=== PATIENT | male | born 1960 | race Caucasian/White ===

== ENCOUNTER 2017-12-18 14:46 | Inpatient (IN) | payer MEDICAID ==
[~2017-12-18] VITALS: Ht 170.2 cm; Wt 77.4 kg
[2017-12-18 15:04] VITALS: Ht 170.2 cm; Wt 77.4 kg
[2017-12-18 16:36] LABS: BASOPHIL % 0.4 % (0-2); PLATELET COUNT 288 x10^3mcL (130-400); RED CELL DISTRIBUTION WIDTH 11.9 % (11.5-14.5)
[2017-12-18 16:57] LABS: FREE T4 0.99 ng/dL (0.76-1.46); FREE THYROXINE INDEX 2.1 ug/dL (1.4-4.5); T4(THYROXINE) 6.5 ug/dL (4.7-13.3)
[2017-12-18 17:03] LABS: CARBON DIOXIDE 26.9 mmol/L (21-32); CHLORIDE SERUM 103 mmol/L (98-107); CREATININE SERUM 0.8 mg/dL (0.7-1.3); GFR1 > 60 mL/min; GLUCOSE SERUM 162 mg/dL (74-106); POTASSIUM SERUM 4.3 mmol/L (3.5-5.1); SODIUM SERUM 138 mmol/L (136-145)
[2017-12-18 17:12] LABS: ALBUMIN 3.8 g/dL (3.4-5.0); ALKALINE PHOSPHATASE 80 U/L (46-116); ALT/SGPT 25 U/L (16-63); AST/SGOT 17 U/L (15-37); BILIRUBIN TOTAL 1.1 mg/dL (0.20-1.00); C REACTIVE PROTEIN 0.7 mg/dL (<=0.9); T3 TOTAL 0.92 ng/mL; TOTAL PROTEIN, SERUM 7.8 g/dL (6.4-8.2)
[2017-12-18 17:24] LABS: CK-MB 4.3 ng/mL (0-3.6)
[2017-12-18 17:26] LABS: ERYTHROCYTE SED RATE 42 mm/hr (0-20)
[2017-12-18 18:39] VITALS: BP 173/74
[2017-12-18 19:23] LABS: CHOLESTEROL/HDL RATIO 3.7; MAGNESIUM 1.8 mg/dL (1.8-2.4); PHOSPHOROUS 4.4 mg/dL (2.5-4.9)
[2017-12-18 20:33] VITALS: BP 135/78
[2017-12-18] MEDS ORDERED: ADULT LOW DOSE81 MG PO (21:12)
[2017-12-18] MEDS ORDERED: PLA75 PO (21:13)
[2017-12-18] MEDS ORDERED: LISINOPRIL40 MG PO (21:14)
[2017-12-18] MEDS ORDERED: LIPI10 PO (21:15)
[2017-12-18] MEDS ORDERED: METFORMIN HCL850 MG PO (21:16)
[2017-12-18] MEDS ORDERED: LANTUS SOLOS100 U/M1 SQ (21:17)
[2017-12-18] MEDS ORDERED: HUMALOG100 U/ML SC (21:18)
[2017-12-19 06:14] VITALS: BP 138/87
[2017-12-19 06:24] LABS: CALCIUM 8.3 mg/dL (8.5-10.1); CARBON DIOXIDE 26.2 mmol/L (21-32); CHLORIDE SERUM 102 mmol/L (98-107); CREATININE SERUM 0.8 mg/dL (0.7-1.3); GFR1 > 60 mL/min; GLUCOSE SERUM 160 mg/dL (74-106); MAGNESIUM 1.5 mg/dL (1.8-2.4); PHOSPHOROUS 3.6 mg/dL (2.5-4.9); POTASSIUM SERUM 4.5 mmol/L (3.5-5.1); SODIUM SERUM 135 mmol/L (136-145)
[2017-12-19 06:44] LABS: BASOPHIL % 0.4 % (0-2); PLATELET COUNT 254 x10^3mcL (130-400); RED CELL DISTRIBUTION WIDTH 11.9 % (11.5-14.5)
[2017-12-19 08:50] VITALS: BP 116/70
[2017-12-19] MEDS ORDERED: CLINDAMYCIN HC300 MG PO (10:17)
[2017-12-19 11:21] VITALS: BP 116/70
== END 2017-12-19 12:15 | disposition home or self-care (01) | DRG 115 ==
LOC: ED 14:46 → MU 17:46
PROVIDERS: Family Medicine; Specialist
PROC: 09900ZZ Drainage of Right External Ear, Open Approach (ICD-10-PCS; principal; 2017-12-18)
DX: H60.01 Abscess of right external ear (principal); N17.0 Acute kidney failure with tubular necrosis; E11.9 Type 2 diabetes mellitus without complications; E78.5 Hyperlipidemia, unspecified; I25.10 Atherosclerotic heart disease of native coronary artery without angina pectoris; I25.2 Old myocardial infarction; Z68.27 Body mass index [BMI] 27.0-27.9, adult; Z79.4 Long term (current) use of insulin; Z95.5 Presence of coronary angioplasty implant and graft; Z79.84 Long term (current) use of oral hypoglycemic drugs
CPT/HCPCS: 36600; 82962; 84439; J2001; J2405; J2543; J3490; J7030; Q0092

== ENCOUNTER 2017-12-22 13:55 | Emergency (ER) | payer MEDICAID ==
[~2017-12-22 13:55] MED LIST: ADULT LOW DOSE81 MG PO; CLINDAMYCIN HC300 MG PO; HUMALOG100 U/ML SC; LANTUS SOLOS100 U/M1 SQ; LIPI10 PO; LISINOPRIL40 MG PO; METFORMIN HCL850 MG PO; PLA75 PO
[2017-12-22 14:20] VITALS: Ht 170.2 cm
[2017-12-22 15:12] VITALS: BP 140/87
== END 2017-12-22 15:12 | disposition home or self-care (01) ==
LOC: ED 13:55
DX: Z48.01 Encounter for change or removal of surgical wound dressing (principal); E11.9 Type 2 diabetes mellitus without complications; I21.9 Acute myocardial infarction, unspecified; Z95.818 Presence of other cardiac implants and grafts

== ENCOUNTER 2017-12-25 06:15 | Emergency (ER) | payer MEDICAID ==
[~2017-12-25] VITALS: Ht 170.2 cm; Wt 79.1 kg
[2017-12-25 06:20] VITALS: Ht 170.2 cm; Wt 79.1 kg
[2017-12-25 07:00] VITALS: BP 131/82
== END 2017-12-25 07:00 | disposition home or self-care (01) ==
LOC: ED 06:15
DX: Z48.01 Encounter for change or removal of surgical wound dressing (principal); E11.9 Type 2 diabetes mellitus without complications